=== PATIENT | female | born 1990 | race Caucasian/White ===

== ENCOUNTER 2017-02-24 12:38 | Emergency (ER) | payer OTHER | END 2017-02-24 13:26 | disposition home or self-care (01) | LOC: SCSER 12:38 | DX: F43.22 Adjustment disorder with anxiety (principal); F31.9 Bipolar disorder, unspecified; Z87.891 Personal history of nicotine dependence | CPT/HCPCS: 99283 ==

== ENCOUNTER 2017-05-29 13:52 | Emergency (ER) | payer OTHER | END 2017-05-29 16:33 | disposition home or self-care (01) | LOC: ERS 13:52 | DX: J01.90 Acute sinusitis, unspecified (principal); F32.9 Major depressive disorder, single episode, unspecified; F31.9 Bipolar disorder, unspecified; Z87.891 Personal history of nicotine dependence | CPT/HCPCS: 99283 ==

== ENCOUNTER 2017-07-05 20:42 | Emergency (ER) | payer OTHER ==
[2017-07-05 21:55] LABS: #Basophils 0.1 thou/uL (0.0-0.2); #Eosinphils 0.1 thou/uL (0.0-0.7); #Monocytes 0.7 thou/uL (0.11-0.59); #Neutrophils 4.4 thou/uL (1.40-6.50); %Basophils 1.3 % (0.0-1.0); %Eosinophils 1.4 % (0.0-10.0); %Lymphocytes 36.7 % (21.0-51.0); %Monocytes 7.9 % (0.0-10.0); %Neutrophils 52.7 % (42.0-75.0); Hemoglobin 11.1 g/dL (12.0-16.0); Mean Corpuscular HGB CONC 32.6 g/dL (32.0-36.0); Mean Corpuscular Hemoglobin 27.6 pg (27.0-31.0); Mean Corpuscular Volume 84.7 fl (81.0-99.0); Mean Platelet Volume 8.9 fL (7.4-10.4); Platelet Count 238 thou/uL (130-400); RBC Distribution Width 14.8 % (11.5-14.5); Red Blood Cell (RBC) Count 4.02 mill/uL (4.20-5.40); White Blood Cell (WBC) Count 8.3 thou/uL (4.8-10.8)
[2017-07-05 21:57] LABS: Bilirubin Negative (Negative); Blood, Urine Negative (Negative); Clarity Clear (Clear); Glucose, Urine (Dipstick) Negative (Negative); Leukocyte Negative (Negative); Nitrite Negative (Negative); Protein, Urine (Dipstick) Negative (Neg-Trace); Urobilinogen 0.2 mg/dL (0.2-1.0)
[2017-07-05 22:00] LABS: Pregnancy Test - Urine (BHCG) Negative (Negative); Pregu Control Background? CLEAR/WHITE (CLR/WHITE); Pregu Control Bar Appear? YES (CONTROL BAR)
[2017-07-05 22:11] LABS: ALT (SGPT) 12 U/L (8-55); AST (SGOT) 22 U/L (5-34); Alkaline Phosphatase 58 U/L (40-150); Anion Gap 15 mmol/L (10-20); BUN (Urea Nitrogen) 8 mg/dL (7.0-18.7); Bilirubin, Total 0.3 mg/dL (0.2-1.2); Calc. Creatinine Clearance 0 mL/min (70-130); Calcium 9.3 mg/dL (7.8-10.44); Carbon Dioxide 23 mmol/L (22-29); Chloride 106 mmol/L (98-107); Estimated GFR-MDRD Greater than 90; Globulin 3.4 g/dL (2.4-3.5); Potassium 3.9 mmol/L (3.5-5.1); Protein, Total 7.4 g/dL (6.0-8.3); Sodium 140 mmol/L (136-145)
[2017-07-05 22:17] LABS: Glucose 57 mg/dL (70-105)
[2017-07-05] MEDS ORDERED: Ketorolac Tromethamine 30 MG/ML VIAL ONE (22:22)
[2017-07-05] MEDS ORDERED: Dextrose 50% Abboject 50 ML SYRINGE ONE (22:22)
--- NOTE | 2017-07-05 23:01 | CT ---
CT ABDOMEN AND PELVIS 07/05/17 COMPARISON: None. HISTORY: Left lower quadrant pain. TECHNIQUE: Serial axial CT imaging at 5 mm intervals from lung bases through pubic symphysis with IV contrast. C oronal reformatted imaging obtained. FINDINGS: Superior most aspect of the liver dome is not fully imaged. Imaged lung bases are unremarkable. Cholelithiasis is noted. Imaged hepatic parenchyma appears unremarkable. the spleen, pancreas, adrena l glands, and kidneys appear unremarkable. Limited assessment of the bowel without oral contrast media demonstrates no evidence for obstruction or inflammatory change. The appendix appears unremarkable. No lymphadenopathy identified within the abdomen or pelvis. Vascular structures appear patent. No acu te osseous abnormality is seen. IMPRESSION: Cholelithiasis. No acute findings. POS: [facility]
[2017-07-05] MEDS ORDERED: Acetaminophen 500 MG TAB ONE (23:58)
== END 2017-07-06 00:29 | disposition home or self-care (01) ==
LOC: SCSER 20:42
DX: R10.32 Left lower quadrant pain (principal); M54.5 Low back pain; F31.9 Bipolar disorder, unspecified; Z87.891 Personal history of nicotine dependence
CPT/HCPCS: 36416; 74177; 80053; 81003; 81025; 85025; 87086; 96372; 96374; 96375; J1885

== ENCOUNTER 2017-07-09 20:34 | Emergency (ER) | payer OTHER ==
--- NOTE | 2017-07-09 21:23 | RAD ---
TWO VIEW CHEST: 07/09/17 HISTORY: Chest pain. Lungs are clear. Heart and mediastinum are unremarkable. Osseous structures are unremarkable. IMPRESSION: Unremarkable chest. POS: [facility]
== END 2017-07-09 21:24 | disposition home or self-care (01) ==
LOC: SCSER 20:34
DX: F41.9 Anxiety disorder, unspecified (principal); F32.9 Major depressive disorder, single episode, unspecified; Z87.891 Personal history of nicotine dependence
CPT/HCPCS: 71046; 93005

== ENCOUNTER 2017-07-24 12:24 | Emergency (ER) | payer OTHER ==
[2017-07-24] MEDS ORDERED: Ondansetron HCl/PF 4 MG/2 ML Vial ONE (12:51)
[2017-07-24 12:52] LABS: #Eosinphils 0.1 thou/uL (0.0-0.7); #Lymphocytes 2.1 thou/uL (1.20-3.40); #Monocytes 0.5 thou/uL (0.11-0.59); #Neutrophils 2.9 thou/uL (1.40-6.50); %Basophils 0.8 % (0.0-1.0); %Lymphocytes 36.8 % (21.0-51.0); %Monocytes 9.1 % (0.0-10.0); %Neutrophils 51.2 % (42.0-75.0); Hemoglobin 11.4 g/dL (12.0-16.0); Mean Corpuscular HGB CONC 33.5 g/dL (32.0-36.0); Mean Corpuscular Hemoglobin 28.1 pg (27.0-31.0); Mean Corpuscular Volume 83.8 fl (81.0-99.0); Mean Platelet Volume 8.3 fL (7.4-10.4); Platelet Count 307 thou/uL (130-400); RBC Distribution Width 14.1 % (11.5-14.5); Red Blood Cell (RBC) Count 4.06 mill/uL (4.20-5.40); White Blood Cell (WBC) Count 5.7 thou/uL (4.8-10.8)
[2017-07-24 13:06] LABS: ALT (SGPT) 12 U/L (8-55); AST (SGOT) 15 U/L (5-34); Alkaline Phosphatase 57 U/L (40-150); Anion Gap 13 mmol/L (10-20); BUN (Urea Nitrogen) 5 mg/dL (7.0-18.7); Bilirubin, Total 0.4 mg/dL (0.2-1.2); Calc. Creatinine Clearance 0 mL/min (70-130); Calcium 8.8 mg/dL (7.8-10.44); Carbon Dioxide 24 mmol/L (22-29); Chloride 108 mmol/L (98-107); Estimated GFR-MDRD Greater than 90; Glucose 96 mg/dL (70-105); Lipase 21 U/L (8-78); Potassium 3.5 mmol/L (3.5-5.1); Sodium 141 mmol/L (136-145)
[2017-07-24 14:40] LABS: Bilirubin Negative (Negative); Blood, Urine Large (Negative); Clarity Hazy (Clear); Glucose, Urine (Dipstick) Negative (Negative); Leukocyte Trace (Negative); Nitrite Positive (Negative); Protein, Urine (Dipstick) Trace mg/dL (Neg-Trace); Specific Gravity, Urine 1.025 (1.005-1.030); Urobilinogen 0.2 mg/dL (0.2-1.0)
[2017-07-24 14:45] LABS: Bacteria/HPF 4+ HPF (None Seen); Pregnancy Test - Urine (BHCG) Negative (Negative); Pregu Control Background? CLEAR/WHITE (CLR/WHITE); Pregu Control Bar Appear? YES (CONTROL BAR); Specific Gravity 1.025 (1.002-1.036)
== END 2017-07-24 14:52 | disposition home or self-care (01) ==
LOC: SCSER 12:24
DX: F10.10 Alcohol abuse, uncomplicated (principal); F17.210 Nicotine dependence, cigarettes, uncomplicated; F32.9 Major depressive disorder, single episode, unspecified
CPT/HCPCS: 80053; 81003; 81015; 81025; 83690; 85025; 87077; 87086; 87186; 96361; 96374; J2405

== ENCOUNTER 2017-09-25 08:53 | Emergency (ER) | payer OTHER, SELFPAY | END 2017-09-25 09:46 | disposition home or self-care (01) | LOC: ERS 08:53 | DX: J02.9 Acute pharyngitis, unspecified (principal); F32.9 Major depressive disorder, single episode, unspecified; F17.210 Nicotine dependence, cigarettes, uncomplicated | CPT/HCPCS: 87081; 87430; 99283 ==

== ENCOUNTER 2017-10-10 12:57 | Emergency (ER) | payer SELFPAY | END 2017-10-10 14:00 | disposition home or self-care (01) | LOC: ERS 12:57 | DX: H92.01 Otalgia, right ear (principal) | CPT/HCPCS: 87081; 87430; 99282 ==

== ENCOUNTER 2017-10-12 08:16 | Emergency (ER) | payer SELFPAY ==
[2017-10-12] MEDS ORDERED: Dexamethasone 10 MG/ML VIAL ONE (09:08)
== END 2017-10-12 09:19 | disposition home or self-care (01) ==
LOC: ERS 08:16
DX: J30.9 Allergic rhinitis, unspecified (principal); F17.210 Nicotine dependence, cigarettes, uncomplicated
CPT/HCPCS: 87081; 87430; 99283; J1100